=== PATIENT | female | born 2000 | race Caucasian/White ===

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

== ENCOUNTER 2022-12-06 13:43 | Emergency (ER) | payer OTHER ==
[~2022-12-06] VITALS: Ht 165.1 cm; Wt 80.3 kg
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
--- OUTSIDE RECORDS SUMMARY | ~2022-12-06 | XMS | Continuity of Care Document ---
Demographics + + + | Address | [address] | | | [place] [address] | + + + | Preferred Language | Unknown | + + + | Marital Status | Never | + + + | Holiness Affiliation | Unknown | + + + | Race | White | + + + | Ethnic Group | Not or | + + + Author + + + | Author | [facility] | + + + | Organization | [facility] | + + + | Address | [address] | | | [place] [address] | + + + | Phone | | + + + Care Team Providers + + + + | Care Hand Lens Polisher Name | Role | Phone | + + + + Unavailable | Unavailable | + + + + Unavailable | Unavailable | + + + + Allergies and Intolerances + + + + + | date | description | facility | type | + + + + + | (no date) | Mild | [facility] | (unknown) | | | | Hospital | | + + + + + | (no date) | Diarrhea | [facility] | (unknown) | | | | Hospital [...] + | 2022-12-03 00:00 | ACETAMINOPHEN | [facility] | + + + + | 2022-12-03 00:00 | CYCLOBENZAPRINE HCL | [facility] | + + + + Problems + + + + | date | description | facility | + + + + | 2014-10-21 00:00 | Laceration of knee | [facility] | + + + + | 2015-07-26 00:00 | Nasopharyngitis | [facility] | + + + + | 2016-08-10 00:00 | Encounter for medical | [facility] | | | screening examination | | + + + + | 2021-07-12 00:00 | Patient left without being | [facility] | | | seen | | + + + + | 2021-10-24 00:00 | Concussion | [facility] | + + + + | 2022-11-29 00:00 | Fracture of distal phalanx | [facility] | | | of finger | | [...] 2022-12-03 00:00 | Viral pharyngitis | [facility] | + + + + | [...]
[~2022-12-06 13:43] MED LIST changes: +CYCLOBENZAPRINE10 MG PO
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
[2022-12-06] MEDS ORDERED: AMOXICILLIN500 MG PO (14:36)
[2022-12-06 15:58] VITALS: BP 113/67
== END 2022-12-06 16:00 | disposition home or self-care (01) ==
LOC: ED 13:43
DX: J02.9 Acute pharyngitis, unspecified (principal); Z91.014 Allergy to mammalian meats; Z79.899 Other long term (current) drug therapy
CPT/HCPCS: 36415; 80053; 85025; 96365; 96375; 99283 25; A9270; J0295; J1100; J1885; J7030

== ENCOUNTER 2024-01-18 16:30 | Emergency (ER) | payer OTHER ==
[~2024-01-18] VITALS: Ht 165.1 cm; Wt 85.9 kg
[~2024-01-18 16:30] MED LIST changes: +AMOXICILLIN500 MG PO
[2024-01-18] MEDS ORDERED: ONE-A-DAY PREN1 EAC2 PO (17:58)
[2024-01-18 19:15] VITALS: BP 118/75
== END 2024-01-18 19:22 | disposition home or self-care (01) ==
LOC: ED 16:30
DX: O99.612 Diseases of the digestive system complicating pregnancy, second trimester (principal); K64.8 Other hemorrhoids; Z3A.19 19 weeks gestation of pregnancy; Z91.014 Allergy to mammalian meats; Z79.899 Other long term (current) drug therapy
CPT/HCPCS: 99283

== ENCOUNTER 2024-06-09 00:01 | Inpatient (IN) | payer OTHER ==
[~2024-06-09] VITALS: Ht 162.6 cm; Wt 101.6 kg
[~2024-06-09 00:01] MED LIST changes: +CALCIUM CARBONATE 500 MG CHEW PO PRN; +LACTATED RINGER'S 1,000 ML IV SCH; +MAGNESIUM HYDROXIDE/AL HYDROX 30 ML CUP PO PRN; +ONE-A-DAY PREN1 EAC2 PO; +miSOPROStoL 25 MCG TAB PV SCH
[2024-06-09] MEDS ORDERED: LACTATED RINGER'S 1,000 ML IV PRN (01:30)
[2024-06-09] MEDS ORDERED: OXYTOCIN/DEXTROSE 5% 20 UNITS/100 ML BAG IV SCH (01:30)
[2024-06-09] MEDS ORDERED: LACTATED RINGER'S 1,000 ML IV SCH (01:30)
[2024-06-09 01:39] LABS: HEMOGLOBIN 12.4 g/dL (12.0-18.0); MCH 27.5 (27-36); MCHC 33.4 g/dl (30-36); MCV 82.3 fl (81-99); RBC 4.49 M/ul (4.3-5.7); RDW 13.4 (10.5-15.0)
[2024-06-09] MEDS ORDERED: miSOPROStoL 25 MCG TAB SL SCH (01:45)
[2024-06-09 03:21] VITALS: BP 133/94
[2024-06-09 03:35] LABS: ABO O; ANTIBODY SCREEN POSITIVE; RH NEGATIVE
[2024-06-09 03:39] LABS: ANTIBODY IDENTIFICATION ANTI-D
[2024-06-09 04:18] LABS: AMPHETAMINES, URINE NEGATIVE (NEGATIVE); BARBITURATES, URINE NEGATIVE (NEGATIVE); BENZODIAZEPINE, URINE NEGATIVE (NEGATIVE); BUPRENORPHINE, URINE NEGATIVE (NEGATIVE); CANNABINOID, URINE POSITIVE (NEGATIVE); COCAINE, URINE NEGATIVE (NEGATIVE); ECSTASY, URINE NEGATIVE (NEGATIVE); FENTANYL, URINE NEGATIVE (NEGATIVE); METHADONE, URINE NEGATIVE (NEGATIVE); OPIATES, URINE NEGATIVE (NEGATIVE); OXYCODONE, URINE NEGATIVE (NEGATIVE); PHENCYCLIDINE, URINE NEGATIVE (NEGATIVE)
[2024-06-09] MEDS ORDERED: ROPIVACAINE 0.2% 200 ML BAG ONE (13:29)
[2024-06-09] MEDS ORDERED: LIDOCAINE HCL 2% 5 ML SDV ONE (13:29)
[2024-06-09] MEDS ORDERED: BUPIVACAINE HCL 0.25% 10 ML SDV INJ ONE (13:29)
[2024-06-09] MEDS ORDERED: dexmedeTOMIDine HCl 200 MCG/2 ML VIAL ONE (13:30)
[2024-06-09] MEDS ORDERED: LIDOCAINE 2% W/ EPI 1:200,000 20 ML SDV ONE (14:26)
[2024-06-09] MEDS ORDERED: LACTATED RINGER'S 2,000 ML IV ONE (14:30)
[2024-06-09] MEDS ORDERED: ROPIVACAINE 0.2% 200 ML BAG EPIDURAL SCH ×2 (14:30)
[2024-06-09] MEDS ORDERED: LACTATED RINGER'S 500 ML IV PRN (14:30)
[2024-06-09] MEDS ORDERED: ePHEDrine sulfate 5 MG/ML SYRINGE IV PRN (14:30)
--- NOTE | 2024-06-09 15:38 | PR ---
[facility] [address], [place] [address] Signed Progress Notes IP Datetime Report Generated by CPJean: 06/09/2024 15:38 PROGRESS NOTES: [id number] Impression: Normal Progression of Labor; Reassuring Heart Rate Plan: Continue Present Management; Anticipate Vaginal Delivery Informed Consent Obtain: Vaginal Delivery; Risks, Benefits and Alternatives Discussed VITAL SIGNS: [id number] Vital Signs: Reviewed; Within Normal Limits EXAM: [id number] Dilatation: 2.5 Effacement: 90 Station: -2 Contractions: q 2-4 minutes MEMBRANES: [id number] Membranes Status: Ruptured Comments: Pt seen and evaluated. Doing very well. Contractions not painful with epidural. Denies pelvic pressure or urge to push. No questions or concerns. Reviewed EFW and recent US andanticipate course of labor and delivery. All questions answered. FETUS A: [id number] FHR Baseline: 130 Variability: Moderate 6-25bpm Accelerations: 15X15 Decelerations: None FHR Category: Category I Comments on Fetus A: Reassuring FETUS B: [id number] Signing Physician: Jez Boland DO Copies: ~ *Electronically Signed* 06/09/24 [id number] JEZ BOLAND (SHREYAS) DO PATIENT NAME: ARACELI ESQUIVEL AMOS PROGRESS NOTE DATE OF : 02 PHYSICIAN: JEZ BOLAND) DO RPT #: [id number] REPORT IS CONFIDENTIAL AND NOT TO BE RELEASED WITHOUT AUTHORIZATION
[2024-06-09] MEDS ORDERED: OXYTOCIN/0.9 % SODIUM CHLORIDE 500 ML IV ONE (17:00)
--- NOTE | 2024-06-09 19:41 | PR ---
[facility] [address] [place], [place] [address] Signed Progress Notes IP Datetime Report Generated by CPN: 06/09/2024 19:41 PROGRESS NOTES: [id number] Impression: Normal Progression of Labor; Reassuring Heart Rate Procedures: Sterile Vag Exam Plan: Continue Present Management; Anticipate Vaginal Delivery Informed Consent Obtain: Vaginal Delivery VITAL SIGNS: [id number] Vital Signs: Reviewed; Within Normal Limits EXAM: [id number] Dilatation: 10.0 Effacement: 100 Station: -1 Contractions: q 2-3 min MEMBRANES: [id number] Membranes Status: Ruptured ROM Note: Bulging bag via Dr. Boland AROM. Comments: Pt seen and examined. Doing well. Pushing well w/ contractions. ROP position noted but making good progress. Will continue to monitor. FETUS A: [id number] FHR Baseline: 130 Variability: Moderate 6-25bpm Accelerations: 15X15 Decelerations: Variable FHR Category: Category II Comments on Fetus A: Reassuring FETUS B: [id number] Signing Physician: Jez Boland DO Copies: ~ *Electronically Signed* 06/09/241940 JEZ BOLAND (SHREYAS) DO PATIENT NAME: ARACELI ESQUIVEL AMOS PROGRESS NOTE DATE OF : 02 PHYSICIAN: JEZ BOLAND) DO RPT #: [id number] REPORT IS CONFIDENTIAL AND NOT TO BE RELEASED WITHOUT AUTHORIZATION
[2024-06-09] MEDS ORDERED: MINERAL OIL 133 ML BTL ONE (20:20)
[2024-06-09] MEDS ORDERED: OXYCODONE/APAP 5/325 TAB PO PRN (21:30)
[2024-06-09] MEDS ORDERED: CALCIUM CARBONATE 500 MG CHEW PO PRN (21:30)
[2024-06-09] MEDS ORDERED: OXYTOCIN/0.9 % SODIUM CHLORIDE 500 ML IV SCH (21:30)
[2024-06-09] MEDS ORDERED: BENZOCAINE 60 ML AEROSOL TOP PRN (21:30)
[2024-06-09] MEDS ORDERED: ACETAMINOPHEN 325 MG TAB PO PRN (21:30)
[2024-06-09] MEDS ORDERED: IBUPROFEN 800 MG TAB PO PRN (21:30)
[2024-06-09] MEDS ORDERED: HYDROCORTISONE ACETATE 25 MG SUPP PR PRN (21:30)
[2024-06-09] MEDS ORDERED: MAGNESIUM HYDROXIDE/AL HYDROX 30 ML CUP PO PRN (21:30)
[2024-06-09] MEDS ORDERED: MAGNESIUM HYDROXIDE 30 ML UDC PO PRN (21:30)
[2024-06-09] MEDS ORDERED: WITCH HAZEL/GLYCERIN 1 EA PAD TOP PRN (21:30)
[2024-06-09] MEDS ORDERED: HYDROCODONE/ACETA 5/325 TAB PO PRN (21:30)
[2024-06-10 05:53] LABS: HEMATOCRIT 31.6 % (35.0-50.0); HEMOGLOBIN 10.7 g/dL (12.0-18.0); MCH 27.9 (27-36); MCHC 33.9 g/dl (30-36); MCV 82.1 fl (81-99); RBC 3.84 M/ul (4.3-5.7); RDW 13.5 (10.5-15.0)
[2024-06-10 07:28] LABS: ABO O; ANTIBODY SCREEN POSITIVE; FETAL HEMOGLOBIN SCREEN NEGATIVE; RH NEGATIVE; RHIG DOSE 1; RHIG STATUS CANDIDATE; RHIG VIAL 1 RG24K02-E
[2024-06-10 07:29] LABS: ANTIBODY IDENTIFICATION ANTI-D
[2024-06-10] MEDS ORDERED: SENNOSIDES/DOCUSATE 1 EA TAB PO SCH (09:00)
--- NOTE | 2024-06-10 18:10 | PR ---
[facility] [address] [place], [place] [address] Signed PP Progress Notes Datetime Report Generated by CPN: 06/10/2024 18:10 SUBJECTIVE: [id number] Pain: Within Normal Limits Nausea/Vomiting: Denies Flatus: Yes Bowel Movement: No Vital Signs: [id number] Vital Signs: Reviewed; Within Normal Limits EXAM: Met Cardiovascular: Normal Respiratory: Normal Abdomen/Uterus: Normal Lochia: Normal Vulva/Perineum: Not Done Breasts: Not Done CVA Tenderness: Normal Extremities: Normal Incision: Not Applicable Progress: Normal Exam Comments: Fundus firm U-2 nontender IMPRESSION/PLAN/PROCEDURES: [id number] Impression: Normal Progression Plan: Discharge Progress Notes: Pt seen and examined. Doing well. Ambulating, voiding, and tolerating full diet. Pain and lochia minimal. well. No fever/chill or other concerns. Desires d/c home. Reviewed d/c instructions / medications. All questions answered. Undecided on pp contraception but will consider after reviewing options Signing Physician: Jez Boland DO Copies: ~ *Electronically Signed* 06/10/24 4197 JEZ BOLAND (SHREYAS) DO PATIENT NAME: ARACELI ESQUIVEL AMOS PROGRESS NOTE DATE OF : 02 PHYSICIAN: JEZ BOLAND (JD) DO RPT #: [id number] REPORT IS CONFIDENTIAL AND NOT TO BE RELEASED WITHOUT AUTHORIZATION
== END 2024-06-10 22:34 | disposition home or self-care (01) | DRG 806 ==
LOC: FBC 00:01
PROVIDERS: Obstetrics & Gynecology; ADMIT Obstetrics & Gynecology; ATTEND Obstetrics & Gynecology
PROC: 10E0XZZ Delivery of Products of Conception, External Approach (ICD-10-PCS; principal; 2024-06-09)
PROC: 0KQM0ZZ Repair Perineum Muscle, Open Approach (ICD-10-PCS; 2024-06-09)
PROC: 10907ZC Drainage of Amniotic Fluid, Therapeutic from Products of Conception, Via Natural or Artificial Opening (ICD-10-PCS; 2024-06-09)
PROC: 4A1HXCZ Monitoring of Products of Conception, Cardiac Rate, External Approach (ICD-10-PCS; 2024-06-09)
PROC: 3E0P7VZ Introduction of Hormone into Female Reproductive, Via Natural or Artificial Opening (ICD-10-PCS; 2024-06-09)
DX: O48.0 Post-term pregnancy (principal); O99.324 Drug use complicating childbirth; Z37.0 Single live birth; O99.334 Smoking (tobacco) complicating childbirth; F17.290 Nicotine dependence, other tobacco product, uncomplicated; O70.1 Second degree perineal laceration during delivery; O99.52 Diseases of the respiratory system complicating childbirth; J45.909 Unspecified asthma, uncomplicated; Z3A.40 40 weeks gestation of pregnancy; F12.90 Cannabis use, unspecified, uncomplicated
CPT/HCPCS: 01960; 36415; 80307; 83030; 85027; 86850; 86870; 86900; 86901; A9270; J2003; J2790; J2795

== ENCOUNTER 2024-12-16 17:54 | Emergency (ER) | payer OTHER ==
[~2024-12-16] VITALS: Ht 152.4 cm; Wt 95.8 kg
[~2024-12-16 17:54] MED LIST changes: -CALCIUM CARBONATE 500 MG CHEW PO PRN; -LACTATED RINGER'S 1,000 ML IV SCH; -MAGNESIUM HYDROXIDE/AL HYDROX 30 ML CUP PO PRN; -miSOPROStoL 25 MCG TAB PV SCH
--- OUTSIDE RECORDS SUMMARY | 2024-12-16 18:00 | XMS ---
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 Brandon VISIT COUNT (12 MO.) 3 [facility] TOTAL 3 NOTE: Visits indicate total known visits. 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 - Diseases of the digestive system complicating , second trimester - Hemorrhage of anus and rectum - Other hemorrhoids - Other senior living (current) drug therapy INPATIENT VISIT TRACKING (12 MO.) 06/09/2024 00:01 [facility] TYPE: [facility] COMPLAINT: - LABOR AND DELIVERY DIAGNOSES: - 40 weeks gestation of - 40 weeks gestation of - Cannabis use, unspecified, uncomplicated - Cannabis use, unspecified, uncomplicated - Diseases of the respiratory system complicating childbirth - Diseases of the respiratory system complicating childbirth - Drug use complicating childbirth - Drug use complicating childbirth - Nicotine dependence, other tobacco product, uncomplicated - Nicotine dependence, other tobacco product, uncomplicated - Post-term - Second degree perineal laceration during delivery - Second degree perineal laceration during delivery - Single live - Single live - Smoking (tobacco) complicating childbirth - Smoking (tobacco) complicating childbirth - Unspecified asthma, uncomplicated - Unspecified asthma, uncomplicated [email or web address]
[2024-12-16] MEDS ORDERED: ONDANSETRON ODT4 MG PO (18:25)
[2024-12-16] MEDS ORDERED: VENTOLIN HFA18 GM INH (18:25)
[2024-12-16 18:28] LABS: BASOPHILS 0.4 % (0.1-1.2); EOSINOPHILS 2.2 % (0.7-5.8); LYMPHOCYTES 12.3 % (19.3-51.7); MCH 25.6 PG (25.6-32.2); MCHC 32.4 g/dL (32.2-35.5); MCV 79.3 fL (79.4-94.8); MONOCYTES 4.9 % (4.7-12.5); NEUTROPHILS 79.9 % (34.0-71.1); RBC 4.29 M/uL (3.93-5.22)
[2024-12-16] MEDS ORDERED: fentaNYL citrate 100 MCG/2 ML VIAL IV ONE ×2 (18:45→20:00)
[2024-12-16 18:50] LABS: ABO O; RH NEGATIVE
[2024-12-16 19:04] LABS: ALT (SGPT) 33.0 U/L (14-59); AST (SGOT) 17.0 U/L (15-37); GLOMERULAR FILTRATION RATE,EST 127.0 mL/min (>60); PROTEIN, TOTAL 6.9 g/dL (6.4-8.2); UREA NITROGEN 6.0 mg/dL (7-18)
[2024-12-16] MEDS ORDERED: OXYTOCIN 10 UNITS/ML VIAL IM ONE (19:45)
[2024-12-16] MEDS ORDERED: RHO(D) IMMUNE GLOBULIN 1,500 UNIT/2 ML ML IM ONE (21:15)
[2024-12-16 21:37] LABS: MCH 26.0 PG (25.6-32.2); MCHC 32.8 g/dL (32.2-35.5); MCV 79.3 fL (79.4-94.8); RBC 3.81 M/uL (3.93-5.22)
[2024-12-16 21:50] LABS: BASOPHILS, MANUAL DIFF 1; LYMPHOCYTES, MANUAL DIFF 25; MONOCYTES, MANUAL DIFF 1; NEUTROPHILS, MANUAL DIFF 73
[2024-12-16] MEDS ORDERED: SODIUM CHLORIDE 0.9% 1,000 ML IV PRN (22:00)
[2024-12-16] MEDS ORDERED: LACTATED RINGER'S 1,000 ML IV ONE (22:15)
[2024-12-16 22:48] LABS: BLOOD/HGB, URINE LARGE (Negative); KETONE, URINE SMALL (Negative); LEUK ESTERASE, URINE LARGE (negative); NITRITE, URINE POSITIVE (negative)
[2024-12-16 22:58] LABS: BACTERIA, URINE 4+ /hpf (negative); CASTS, URINE NONE SEEN \\lpf; CRYSTALS, URINE NONE SEEN (0-1+); EPITHELIAL CELLS, URINE SQUAMOUS 1+ /lpf (0-1+); REFLEX CULTURE, URINE Yes (No)
[2024-12-16] MEDS ORDERED: HYDROCODON-ACE1 EA10 PO (23:15)
[2024-12-16] MEDS ORDERED: HYDROCODONE BIT/ACETAMINOPHEN 5/325 MG 1 TAB HOME.PACK PO ONE (23:30)
[2024-12-16 23:48] VITALS: BP 113/56
--- NOTE | 2024-12-18 14:26 | PATH ---
[facility] [address] [place], [place] [address] Signed SPECIMEN(S): A UTERUS, PRODUCTS OF CONCEPTION SPECIMEN SOURCE: A. UTERUS, PRODUCTS OF CONCEPTION CLINICAL HISTORY: Miscarriage FINAL PATHOLOGIC DIAGNOSIS: Uterus, products of conception: - Blood clot and scant epithelium and inflammation. - See Comment. COMMENT: The sample consists nearly entirely of blood clot. There is no evidence of products of conception and there is focal acute inflammation. The epithelial fragments are insufficient for evaluation. Clinical correlation is requested to ensure that there is no evidence of ectopic . JVR:smn MICROSCOPIC EXAMINATION: Histologic sections of all submitted blocks are examined by light microscopy. These findings, together with the gross examination, support the pathologic diagnosis. GROSS DESCRIPTION: The specimen, labeled and designated "Max Esquivel, uterus, products of conception," is received in formalin and consists of a 7.3 x 5.2 x 2.5 cm aggregate of brown-red congealed blood. There is no grossly apparent soft tissue present. No villous tissue is identified. No parts are identified. Acid Extractor sections are submitted in cassette A1 through A3. AA (under the direct supervision of a pathologist) The Gross Description was prepared using a voice recognition system. The report was reviewed for accuracy; however, sound-alike word errors, addition and/or deletions may occur. If there is any question about this report, please contact Client Services. PERFORMING LABORATORY: Technical component was performed by [facility], José Miguel Ndiaye, PATIENT NAME: ARACELI ESQUIVEL AMOS PATHOLOGY DATE OF : 02 REPORT #: [id number] PHYSICIAN: [facility] PCP: JEZ IGNACIO (SHREYAS) DO REPORT IS CONFIDENTIAL AND NOT TO BE RELEASED WITHOUT AUTHORIZATION [facility] [address] [facility] [place], [place] [address] [place] [address] (CLIA# [id number]). Professional interpretation was performed by [facility] - [address] [place] [address] (CLIA#: [id number]). Diagnostician: Demetrio Rasmussen MD Pathologist Electronically Signed 12/18/2024 Copies: ~ PATIENT NAME: ARACELI ESQUIVEL AMOS PATHOLOGY DATE OF : 02 REPORT #: [id number] PHYSICIAN: [facility] PCP: JEZ IGNACIO (SHREYAS) DO REPORT IS CONFIDENTIAL AND NOT TO BE RELEASED WITHOUT AUTHORIZATION
== END 2024-12-16 23:57 | disposition home or self-care (01) ==
LOC: ED 17:54
PROVIDERS: Emergency Medicine; Family Medicine
DX: O03.9 Complete or unspecified spontaneous abortion without complication (principal); F17.200 Nicotine dependence, unspecified, uncomplicated
CPT/HCPCS: 36415; 76801; 76817; 80053; 81001; 84702; 85025; 86900; 86901; 87088; 88305; 96374; 96375; 96376; 99284-25; A9270; J2405; J2590; J2790; J3010; J7030; J7121